=== PATIENT | female | born 1985 | race Caucasian/White ===

== ENCOUNTER 2018-03-16 16:22 | Inpatient (IN) | payer OTHER ==
[2018-03-16] MEDS ORDERED: Ondansetron PF 4 MG/2 ML Vial IVP PRN ×2 (16:39→21:16)
[2018-03-16] MEDS ORDERED: Lidocaine 1% (PF) 30 ML VIAL SC PRN (16:39)
[2018-03-16] MEDS ORDERED: Promethazine HCl 25 MG/ML VIAL IM PRN ×2 (16:39→21:16)
[2018-03-16] MEDS ORDERED: Ibuprofen 800 MG TAB PO PRN (16:39)
[2018-03-16] MEDS ORDERED: HYDROcodone/Acetaminophen 5/325 mg Tablet PO PRN ×4 (16:39→21:16)
[2018-03-16] MEDS ORDERED: NS / Oxytocin 40 units/1000ml 1,000 ML IV PRN (16:39)
[2018-03-16 17:14] LABS: Hemoglobin 10.8 g/dL (12.0-16.0); Mean Corpuscular HGB CONC 35.2 g/dL (32.0-36.0); Mean Corpuscular Hemoglobin 33.3 pg (27.0-31.0); Mean Corpuscular Volume 94.5 fL (78.0-98.0); Mean Platelet Volume 9.3 fL (7.4-10.4); Platelet Count 202 thou/uL (130-400); RBC Distribution Width 14.8 % (11.5-14.5); Red Blood Cell (RBC) Count 3.26 mill/uL (4.20-5.40); White Blood Cell (WBC) Count 9.2 thou/uL (4.8-10.8)
[2018-03-16 17:35] LABS: ALT (SGPT) 11 U/L (8-55); AST (SGOT) 17 U/L (5-34)
[2018-03-16 17:56] LABS: HBSAg Index 0.16 S/CO (0-0.99); Hep B Surf Ag Non-Reactive S/CO (NonReactive); Syphilis Antibody Nonreactive (Nonreactive); Syphilis Antibody Index 0.04 S/CO (<1.00 Non-Reactive)
[2018-03-16] MEDS ORDERED: Lanolin Ointment 7 GM TUBE TOP PRN (21:16)
[2018-03-16] MEDS ORDERED: Benzocaine/Menthol 20-0.5% 60 ML CAN TOP PRN (21:16)
[2018-03-16] MEDS ORDERED: Milk Of Magnesia 30 ML UDCUP PO PRN (21:16)
[2018-03-16] MEDS ORDERED: Adacel (T-DAP) 0.5 ML VIAL IM ONE (21:16)
[2018-03-16] MEDS ORDERED: Preparation H Ointment 28 GM TUBE PR PRN (21:16)
[2018-03-16] MEDS ORDERED: diphenhydrAMINE 25 MG CAP PO PRN (21:16)
[2018-03-16] MEDS ORDERED: Bisacodyl 10 MG SUPP PR PRN (21:16)
[2018-03-16] MEDS: Ibuprofen 800 MG TAB PO SCH (21:20)
[2018-03-16] MEDS ORDERED: NS / Oxytocin 40 units/1000ml 1,000 ML IV SCH (21:30)
--- NOTE | 2018-03-17 02:48 | OP ---
DATE OF SERVICE: 03/16/2018 PREOPERATIVE DIAGNOSES: 1. A 32-year-old G2, P1 at 38 and 5 weeks gestation with active labor. 2. GBS negative. 3. Gestational diabetic with good diet control. 4. Gestational hypertension at the third trimester onset without medications. POSTOPERATIVE DIAGNOSES: 1. A 32-year-old G2, P1 at 38 and 5 weeks gestation with active labor. 2. GBS negative. 3. Gestational diabetic with good diet control. 4. Gestational hypertension at the third trimester onset without medications. 5. Liveborn female, weight unavailable at the time of delivery with Apgars unavailable at the time o f dictation as well. 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 The patient had been checked 2 days prior and was noted to be 2 cm, 70 % effaced and -3 station. She was evaluated and noted to have a normal doptones and regular strong c ontractions that were palpable with a cervical exam of 3, 80 and -2. The patient was then told to go to the hospital for direct admission and delivery. She was then admitted and IV was started. She h ad a category 1 tracing with regular contractions every 2 minutes. Once the patient was admitted, an amniotomy was performed with clear fluid. At that point in time, she was 3.5 cm, 80% effaced and -1 station. The patient to clear that she did not request or want an epidural for maternal analgesia. She proceeded to continue to progress along the labor curve and at 8 cm and +1 station. She began t o have a desire to push. DETAILS OF PROCEDURE: With good maternal effort, the patient quickly progressed to complete cervical dilation and +2 station. She pushed and was able to deliver the vertex in the TODD position. The anterior shoulder followed by the posterior shoulder followed by the remainder of the 's pilar dy was delivered. The cord was doubly clamped and cut and the was placed on the maternal abdo men. Cord blood was obtained. Then, the placenta was delivered spontaneously intact with a 3-vessel cord. Exploration of the vaginal wall, the introitus and the cervix noted a midline second-degree l aceration, which was repaired after giving local anesthetic in a running fashion to pass the hymen to the outer opening then diving down and doing several crown sutures to reapproximate the space a nd then the skin was reapproximated and the knot was buried behind the hymen. Patient tolerated this procedure well and was hemostatic at the completion of the repair. There was a right periurethral t ear that was not actively bleeding and was minimal. The patient was allowed to recover in the [facility] room with her infant. Again, the infant was a liveborn female with Apgars of 9 and 9 at 1 and 5 m inutes respectively. Weight was unavailable at the time of dictation. There were no other issues [place] rrounding this delivery. Patient's sugars were controlled during the entirety of her admission and h er blood pressures were mild to normal.
[2018-03-17] MEDS: Ibuprofen 800 MG TAB PO SCH ×3 (05:54→21:31)
[2018-03-17] MEDS: Prenatal Vitamin 1 TAB PO SCH (12:00)
[2018-03-17] MEDS: Docusate Calcium (SURFAK) 240 MG CAP PO SCH ×2 (12:00→21:31)
[2018-03-17] MEDS: Ferrous Sulfate 325 MG TAB PO SCH ×2 (12:00→18:46)
[2018-03-17 22:30] VITALS: TEMP 97.7
[2018-03-18] MEDS: Ibuprofen 800 MG TAB PO SCH (05:36)
[2018-03-18] MEDS: Ferrous Sulfate 325 MG TAB PO SCH (07:36)
[2018-03-18 08:34] VITALS: BP 110/58
[2018-03-18] MEDS: Docusate Calcium (SURFAK) 240 MG CAP PO SCH (09:32)
[2018-03-18] MEDS: Prenatal Vitamin 1 TAB PO SCH (09:33)
== END 2018-03-18 13:00 | disposition home or self-care (01) | DRG 807 ==
LOC: L&D 16:22 → 3SW 03-17 00:14
PROVIDERS: ADMIT Obstetrics & Gynecology; ATTEND Obstetrics & Gynecology
PROC: 10E0XZZ Delivery of Products of Conception, External Approach (ICD-10-PCS; principal; 2018-03-16)
PROC: 0UQMXZZ Repair Vulva, External Approach (ICD-10-PCS; 2018-03-16)
PROC: 10907ZC Drainage of Amniotic Fluid, Therapeutic from Products of Conception, Via Natural or Artificial Opening (ICD-10-PCS; 2018-03-16)
DX: O13.4 Gestational [pregnancy-induced] hypertension without significant proteinuria, complicating childbirth (principal); Z37.0 Single live birth; O24.420 Gestational diabetes mellitus in childbirth, diet controlled; O71.82 Other specified trauma to perineum and vulva; Z3A.38 38 weeks gestation of pregnancy
CPT/HCPCS: 84450; 84460; 85027; 86780; 86850; 86900; 86901; 87340; J2001